=== PATIENT | female | born 1990 | race Two or more races ===

== ENCOUNTER 2023-03-01 12:24 | Emergency (ER) | payer MEDICAID, OTHER ==
[~2023-03-01] VITALS: Ht 152.4 cm; Wt 63.5 kg
[2023-03-01 12:35] VITALS: BP 127/96
[2023-03-01] MEDS ORDERED: ACYCLOVIR 400 MG TAB PO ONE (15:30)
[2023-03-01] MEDS ORDERED: VALA1TAB34 PO (15:33)
== END 2023-03-01 15:53 | disposition home or self-care (01) ==
LOC: ER 12:24
DX: B00.1 Herpesviral vesicular dermatitis (principal)

== ENCOUNTER 2024-04-29 01:33 | Emergency (ER) | payer MEDICAID ==
[~2024-04-29 01:33] MED LIST: VALA1TAB34 PO
[2024-04-29] MEDS ORDERED: NAPR-746 PO (09:00)
== END 2024-04-29 02:47 | disposition left against medical advice (07) ==
LOC: ER 01:33
DX: S69.90XA Unspecified injury of unspecified wrist, hand and finger(s), initial encounter (principal); Z53.21 Procedure and treatment not carried out due to patient leaving prior to being seen by health care provider; X58.XXXA Exposure to other specified factors, initial encounter; Y93.89 Activity, other specified; Y92.89 Other specified places as the place of occurrence of the external cause; Y99.8 Other external cause status

== ENCOUNTER 2024-04-29 07:30 | Emergency (ER) | payer MEDICAID ==
[~2024-04-29] VITALS: Ht 152.4 cm; Wt 55.2 kg
[2024-04-29] MEDS ORDERED: NAPR-746 PO (09:00)
[2024-04-29 09:04] VITALS: BP 103/66; PULSE 78; RESP 16; TEMP 98.8; O2SAT 100
== END 2024-04-29 09:24 | disposition home or self-care (01) ==
LOC: ER 07:30
DX: S63.692A Other sprain of right middle finger, initial encounter (principal); Z79.899 Other long term (current) drug therapy; V49.9XXA Car occupant (driver) (passenger) injured in unspecified traffic accident, initial encounter; Y93.I9 Activity, other involving external motion; Y92.89 Other specified places as the place of occurrence of the external cause; Y99.8 Other external cause status
CPT/HCPCS: 29130; 73130